=== PATIENT | male | born 1940 | race Caucasian/White ===

== ENCOUNTER 2019-02-28 06:05 | Day surgery (SDC) | payer OTHER ==
[~2019-02-28 06:05] MED LIST: COSOP; ULTRACET PO
== END 2019-02-28 10:59 | disposition home or self-care (01) ==
LOC: AMB-ENDOS 06:05
DX: K57.30 Diverticulosis of large intestine without perforation or abscess without bleeding (principal); K64.4 Residual hemorrhoidal skin tags